=== PATIENT | male | born 1995 | race Caucasian/White ===

== ENCOUNTER 2021-07-27 06:58 | Emergency (ER) | payer BC ==
--- NOTE | 2021-07-27 09:10 | ER ---
Nurse's Notes [facility] Name: Leonardo Sumner Age: 26 yrs Sex: Male : 1995 Arrival Date: 07/27/2021 Time: 07:01 Bed DX1 Private MD: Diagnosis: Peritonsillar abscess Presentation: 07/27 07:27 Chief complaint: Sore throat and pain that extends down both sides of the neck x 2 hb weeks. Recently completed amoxicillin for same s/s. Coronavirus screen: At this time, the client does not indicate any symptoms associated with coronavirus-19. Onset of symptoms was July 12, 2021. 07:27 Method Of Arrival: Ambulatory hb 07:27 Acuity: SPENCRE 4 hb 08:41 Acuity: SPENCER 3 iw Historical: - Allergies: 07:29 No Known Allergies; hb - Family history:: not pertinent. Vital Signs: 07:27 BP 164 / 94; Pulse 92; Resp 16; Temp 98.3; Pulse Ox 100% on R/A; Weight 88.45 kg; hb Height 5 ft. 9 in. (175.26 cm); Pain 4/10; 07:27 Body Mass Index 28.80 (88.45 kg, 175.26 cm) hb ED Course: 07:01 Patient arrived in ED. wm 07:29 Triage completed. hb 07:29 Arm band placed on. hb 08:17 Jason Machuca MD is Attending Physician. jenn 08:41 Effie Dupont, RN is Primary Nurse. iw 09:09 Kena Garibay MD is Referral Physician. jenn 09:09 Gisela Mcneil MD is Referral Physician. jenn 09:20 CT Soft Tissue Neck W/contr In Process Unspecified. EDMS Administered Medications: 09:34 Drug: NS 0.9% 1000 ml Route: IV; Rate: 1 bolus; Site: right antecubital; iw 10:30 Follow up: IV Status: Completed infusion iw 09:34 Drug: Rocephin (cefTRIAXone) 1 grams Route: IV; Rate: per protocol; Site: right iw antecubital; 09:44 Follow up: IV Status: Completed infusion iw 09:34 Drug: Clindamycin 900 mg Route: IVPB; Infused Over: 30 mins; Site: right antecubital; iw 10:00 Follow up: IV Status: Completed infusion iw 09:34 Drug: Decadron - Dexamethasone 10 mg Route: IVP; Site: right antecubital; iw 10:00 Follow up: Response: No adverse reaction iw Outcome: Discharge ordered by . jenn 10:03 Patient left the ED. iw Signatures: Dispatcher [employer] EDJason Hunter MD MD cha Williams, Irene, RN RN iw Baxter, Heather, RN RN hb Marsh, Wendy
--- NOTE | 2021-07-27 09:10 | EDPHYS ---
Physician Documentation [facility] Name: Leonardo Sumner Age: 26 yrs Sex: Male : 1995 Arrival Date: 07/27/2021 Time: 07:01 Bed DX1 Private MD: ED Physician Jason Machuca HPI: 07/27 08:41 This 26 yrs old Male presents to ER via Ambulatory with complaints of Swollen jenn Glands. 08:41 The patient presents with pain, redness, swelling. The problem is located in the left jenn buccal mucosa. Onset: The symptoms/episode began/occurred 10 day(s) ago. Duration: The symptoms are continuous, and are steadily getting worse. Modifying factors: The symptoms are alleviated by nothing, the symptoms are aggravated by chewing. Associated signs and symptoms: The patient has no apparent associated signs or symptoms. Severity of symptoms: At their worst the symptoms were in the emergency department the symptoms are unchanged. The patient has not experienced similar symptoms in the past. Historical: - Allergies: 07:29 No Known Allergies; hb - Family history:: not pertinent. ROS: 08:41 Constitutional: Negative for fever, chills, and weight loss, Eyes: Negative for injury, jenn pain, redness, and discharge, Neck: Negative for injury, pain, and swelling, Cardiovascular: Negative for chest pain, palpitations, and edema, Respiratory: Negative for shortness of breath, cough, wheezing, and pleuritic chest pain, Abdomen/GI: Negative for abdominal pain, nausea, vomiting, diarrhea, and constipation, Back: Negative for injury and pain, : Negative for injury, bleeding, discharge, and swelling, MS/Extremity: Negative for injury and deformity, Skin: Negative for injury, rash, and discoloration, Neuro: Negative for headache, weakness, numbness, tingling, and seizure, Psych: Negative for depression, anxiety, suicide ideation, homicidal ideation, and hallucinations, Allergy/Immunology: Negative for hives, rash, and allergies, Endocrine: Negative for neck swelling, polydipsia, polyuria, polyphagia, and marked weight changes, Hematologic/Lymphatic: Negative for swollen nodes, abnormal bleeding, and unusual bruising. 08:41 ENT: Positive for difficulty swallowing, sore throat. Exam: 08:41 Constitutional: This is a well developed, well nourished patient who is awake, alert, jenn and in no acute distress. Head/Face: Normocephalic, atraumatic. Eyes: Pupils equal round and reactive to light, extra-ocular motions intact. Lids and lashes normal. Conjunctiva and sclera are non-icteric and not injected. Cornea within normal limits. Periorbital areas with no swelling, redness, or edema. Neck: Trachea midline, no thyromegaly or masses palpated, and no cervical lymphadenopathy. Supple, full range of motion without nuchal rigidity, or vertebral point tenderness. No Meningismus. Chest/axilla: Normal chest wall appearance and motion. Nontender with no deformity. No lesions are appreciated. Cardiovascular: Regular rate and rhythm with a normal S1 and S2. No gallops, murmurs, or rubs. Normal PMI, no JVD. No pulse deficits. Respiratory: Lungs have equal breath sounds bilaterally, clear to auscultation and percussion. No rales, rhonchi or wheezes noted. No increased work of breathing, no retractions or nasal flaring. Abdomen/GI: Soft, non-tender, with normal bowel sounds. No distension or tympany. No guarding or rebound. No evidence of tenderness throughout. Back: No spinal tenderness. No costovertebral tenderness. Full range of motion. Skin: Warm, dry with normal turgor. Normal color with no rashes, no lesions, and no evidence of cellulitis. MS/ Extremity: Pulses equal, no cyanosis. Neurovascular intact. Full, normal range of motion. Neuro: Awake and alert, GCS 15, oriented to person, place, time, and situation. Cranial nerves II-XII grossly intact. Motor strength 5/5 in all extremities. Sensory grossly intact. Cerebellar exam normal. Normal gait. Psych: Awake, alert, with orientation to person, place and time. Behavior, mood, and affect are within normal limits. 08:41 ENT: Posterior pharynx: Tonsils: bilaterally enlarged, with erythema, Uvula: normal, swelling, that is moderate, erythema, that is moderate, exudate, is not appreciated, peritonsillar mass, is not appreciated. Vital Signs: 07:27 BP 164 / 94; Pulse 92; Resp 16; Temp 98.3; Pulse Ox 100% on R/A; Weight 88.45 kg; hb Height 5 ft. 9 in. (175.26 cm); Pain 4/10; 07:27 Body Mass Index 28.80 (88.45 kg, 175.26 cm) hb MDM: 08:17 Patient medically screened. jenn 08:43 Differential diagnosis: dental caries, gingivitis, dental abscess. Data reviewed: vital jenn signs, nurses notes, lab test result(s), radiologic studies, CT scan. 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 Counseling: I had a detailed discussion with the patient and/or guardian regarding: the historical points, exam findings, and any diagnostic results supporting the discharge/admit diagnosis, lab results, radiology results, the need for outpatient follow up, for definitive care, an ENT specialist. 07/27 08:40 Order name: CBC with Diff [facility] 07/27 08:40 Order name: Comprehensive Metabolic Panel [facility] 07/27 08:40 Order name: CT Soft Tissue Neck W/contr; Complete Time: 09:47 jenn Administered Medications: 09:34 Drug: NS 0.9% 1000 ml Route: IV; Rate: 1 bolus; Site: right antecubital; iw 10:30 Follow up: IV Status: Completed infusion iw 09:34 Drug: Rocephin (cefTRIAXone) 1 grams Route: IV; Rate: per protocol; Site: right iw antecubital; 09:44 Follow up: IV Status: Completed infusion iw 09:34 Drug: Clindamycin 900 mg Route: IVPB; Infused Over: 30 mins; Site: right antecubital; iw 10:00 Follow up: IV Status: Completed infusion iw 09:34 Drug: Decadron - Dexamethasone 10 mg Route: IVP; Site: right antecubital; iw 10:00 Follow up: Response: No adverse reaction iw Disposition Summary: 07/27/21 09:09 Discharge Ordered Location: Home jenn Problem: new jenn Symptoms: have improved jenn Condition: Stable jenn Diagnosis - Peritonsillar abscess jenn Followup: jenn - With: Private Physician - When: 2 - 3 days - Reason: Recheck today's complaints, Continuance of care, Re-evaluation by your physician Followup: jenn - With: - When: Upon discharge from the Emergency Department - Reason: Recheck today's complaints, Re-evaluation by your physician Followup: jenn - With: - When: Upon discharge from the Emergency Department - Reason: Recheck today's complaints, Re-evaluation by your physician Discharge Instructions: - Discharge Summary Sheet jenn - Peritonsillar Abscess jenn - Pharyngitis jenn - Peritonsillar Abscess, [id number] jenn - Peritonsillar Cellulitis jenn Forms: - Medication Reconciliation Form jenn - Thank You Letter jenn - Antibiotic Education jenn - Prescription Opioid Use jenn - SBAR form iw Prescriptions: - Clindamycin HCl 300 mg Oral Capsule - take 1 capsule by ORAL route every 6 hours for 10 days; 40 capsule; Refills: 0, jenn Product Selection Permitted Signatures: Dispatcher [employer] EDJason Hunter MD MD cha Williams, Irene, RN RN iw Baxter, Heather, RN RN
[2021-07-27] MEDS ORDERED: CEFTRIAXONE/SWI 1gm 1 GM/10 ML SYR ONE (09:38)
[2021-07-27] MEDS ORDERED: CLINDAMYCIN 900MG/D5W 900 MG/50 ML IVPB IV ONE (09:38)
[2021-07-27] MEDS ORDERED: dexAMETHasone 10 MG/ML VIAL ONE (09:38)
[2021-07-27] MEDS ORDERED: NA CHLORIDE 0.9% 1,000 ML ONE (09:38)
--- NOTE | 2021-07-27 09:43 | RAD REPORT ---
EXAM DESCRIPTION: CT - Soft Tissue Neck W/Contr - 07/27/2021 9:20 am CLINICAL HISTORY: PAIN COMPARISON: No comparisons TECHNIQUE: During dynamic enhancement using 100 milliliters nonionic IV contrast, axial 5 millimeter thick images of the neck were obtained. All CT scans are performed using dose optimization technique as appropriate and may include automated exposure control or mA/KV adjustment according to patient size. FINDINGS: Intracranial portion the examination is unremarkable. No globe or orbital content abnormal ity. Mastoid air cells and paranasal sinuses are clear. No vascular abnormality identifiable. Patient has baseline prominence of the tonsillar tissue. Left tonsil is enlarged relative to the righ t and in the lateral mid and inferior aspect of the left tonsil there is a 2 cm CC x 1 cm AP x 0.8 CC TR low-density collection most likely a left tonsillar abscess. Left-side pharyngeal tissue at the superior margin of the tonsil is edematous but not clearly an absc ess. No soft palate abnormality seen. Epiglottis and vocal cords are unremarkable. A few small nonspecific right-side cervical lymph nodes are present. A cluster of numerous 1-2.5 cm s ized lymph nodes are present along the left side of the neck from angle of the mandible to the hyoid bone level. These are most likely reactive lymph nodes from the left tonsillar process. None of the c ervical lymph nodes show evidence for cavitation or abscess formation. The parotid, submandibular and thyroid gland tissue show no suspicious findings. IMPRESSION: A 2 x 1 x 1 cm left tonsillar abscess is present in the lateral mid to lower portion of the tonsil with overall enlargement of the left tonsil. The left-side supratonsillar pharyngeal mucosa is thickened and edematous without a clearly defined a bscess. Numerous enhancing reactive lymph nodes left side of the neck.
[2021-07-27 09:45] LABS: Absolute Lymphocytes (CBC) 1.4 K/uL (0.7-4.9); Basophils % 0.3 % (0-1.3); Lymphocytes % 12.7 % (15.3-44.8); MPV 7.4 fL (7.6-11.3); RBC Red Blood Cell Count 4.97 M/uL (4.33-5.43)
[2021-07-27 09:58] LABS: ALT/SGPT 42 U/L (12-78); AST/SGOT 18 U/L (15-37); Albumin 4.2 g/dL (3.4-5.0); Alkaline Phosphatase 80 U/L (45-117); BUN Blood Urea Nitrogen 9 mg/dL (7-18); Bicarbonate 33 mmol/L (21-32); Bilirubin Total 0.9 mg/dL (0.2-1.0); Glucose Level 90 mg/dL (74-106); Potassium 4.2 mmol/L (3.5-5.1); Protein, Total 8.8 g/dL (6.4-8.2); Sodium Level 137 mmol/L (136-145)
[2021-07-27 10:52] VITALS: BP 164/94; TEMP 98.3; O2SAT 100
== END 2021-07-27 10:03 | disposition home or self-care (01) ==
LOC: ER 06:58
DX: J36 Peritonsillar abscess (principal)
CPT/HCPCS: 96365; 85025; 36415; 80053; 70491; 96375; 99283; Q9967; J1100; J0696; J7030

== ENCOUNTER → 2024-02-14 | Emergency (ER) | payer BC ==
[~2024-02-14] MED LIST: FLUORESCEIN SODIUM 1 MG/WRAP ONE; KETOROLAC 30 MG/ML INJ ONE; NA CHLORIDE 0.9% 1,000 ML ONE; TETRACAINE HCL 0.5% 4ML OPTH ONE
--- OUTSIDE RECORDS SUMMARY | 2024-02-14 19:32 | XMS REPORT | Continuity of Care Document ---
Author Name Unknown Address [address] [place] [address] [facility] thconnect Address [address] [place] [address] Care Team Providers Care Utilization Manager Name Role Phone Scarlet Terry Attending Clinician Unavailable Payers Payer Name Policy Type Policy Number Effective Date Expirati on Date Source [place] [address] [id number] [facility] Problems Condition Name Condition Details Condition Category Status Onset Date Resolution Date Last Treatment Date Treating Clinician Comments Source [id number] Sprain of right acromiocla vicular ligament, initial encounter Problem [facility] [id number] Pain, joint, shoulder, right Problem [facility] Shoulder joint pain Shoulder pain, right Problem [facility] [id number] Umbilical pain Problem [facility] [id number] Ganglion cyst Problem [facility] Social History Social Habit Start Date Stop Date Quantity Comments Source History of Tobacco Use [facility] Sex Assigned At [facility] Smoking Status Start Date Stop Date Source Never Smoker [facility] Medications Ordered Medication Name Filled Medication Name Start Date Stop Date Current Medication? Ordering Clinician Indication Dosage Frequency Signature (SIG) Comments Components Source No Known Medications No Known Medications No [facility] No Known Medications No Known Medications No [facility] Vital Signs Vital Name Observation Time Observation Value Comments S nahun height 2023-10-24 14:40:00 70 [in_i] Commo n [facility] weight 2023-10-24 14:40:00 161.0 [lb_av] Co [facility] temperature 2023-10-24 14:40:00 98.2 [degF] Com [facility] bmi 2023-10-24 14:40:00 23.1 kg/m2 Commo n [facility] oximetry 2023-10-24 14:40:00 100 % Commo n [facility] respiratory rate 2023-10-24 14:40:00 16 /min [facility] blood pressure systolic 2023-10-24 14:40:00 133 mm[Hg] Common [facility] blood pressure diastolic 2023-10-24 14:40:00 83 mm[Hg] [facility] height 2023-09-21 14:20:00 70 [in_i] Commo n [facility] weight 2023-09-21 14:20:00 166.4 [lb_av] Co [facility] temperature 2023-09-21 14:20:00 98.2 [degF] Com [facility] bmi 2023-09-21 14:20:00 23.87 kg/m2 Comm on [facility] oximetry 2023-09-21 14:20:00 100 % Commo n [facility] respiratory rate 2023-09-21 14:20:00 16 /min Common [facility] blood pressure systolic 2023-09-21 14:20:00 138 mm[Hg] [facility] blood pressure diastolic 2023-09-21 14:20:00 73 mm[Hg] [facility] Encounters Start Date/Time End Date/Time Encounter Type Admission Type Attending Clinicians Care Facility Care Department Encounter ID Source 2023-10-21 09:18:00 Outpatient Scarlet Terry [facility] [id number] [facility] 2023-10-17 10:35:00 Outpatient Scarlet Terry [facility] [id number] [facility] 2023-09-21 14:16:00 Outpatient Scarlet Terry [facility] [id number] [facility] 2023-03-10 09:27:01 Outpatient Scarlet Terry [facility] [id number] [facility] 2023-03-09 15:19:01 Outpatient Scarlet Terry [facility] [id number] [facility] 2022-10-22 13:00:00 Outpatient Scarlet Terry [facility] [id number] [facility] 2022-10-20 13:46:01 Outpatient Scarlet Terry [facility] [id number] [facility] 2021-12-23 13:58:19 Outpatient Scarlet Terry [facility] [id number] [facility] 2023-11-28 00:00:00 2023-11-28 00:00:00 (TEL) [facility] [id number] [facility] 2023-10-24 00:00:00 2023-10-24 00:00:00 PREV VISIT NEW AGE 18-39 [facility] [id number] [facility] 2023-09-28 00:00:00 2023-09-28 00:00:00 (TEL) [facility] [id number] [facility] 2023-09-21 00:00:00 2023-09-21 00:00:00 OFFICE VISIT ESTAB PT LEVEL 3 [facility] [id number] [facility] Results Test Description Test Time Test Comments Results Result Co mments Source CBC (INCLUDES DIFF/PLT)2023-11-17 00:00:00* Test Item Value Reference Range Interpretation Comme nts ABSOLUTE BASOPHILS (test code = 704-7) 30 cells/uL See_Comment N [Automated m essage] The system which generated this result transmitted reference range: 0-200 cells/uL. The reference range was not used to interpret this result as normal/abnormal. ABSOLUTE EOSINOPHILS (test code = 711-2) 142 cells/uL See_Comment N [Automated m essage] The system which generated this result transmitted reference range: 15-500 cells/uL. The reference range was not used to interpret this result as normal/abnormal. ABSOLUTE LYMPHOCYTES (test code = 731-0) 1699 cells/uL See_Comment N [Automated m essage] The system which generated this result transmitted reference range: 850-3900 cells/uL. The reference range was not used to interpret this result as normal/abnormal. ABSOLUTE MONOCYTES (test code = 742-7) 314 cells/uL See_Comment N [Automated m essage] The system which generated this result transmitted reference range: 200-950 cells/uL. The reference range was not used to interpret this result as normal/abnormal. ABSOLUTE NEUTROPHILS (test code = 751-8) 2116 cells/uL See_Comment N [Automated m essage] The system which generated this result transmitted reference range: 3796-0445 cells/uL. The reference range was not used to interpret this result as normal/abnormal. BASOPHILS (test code = 706-2) 0.7 % N EOSINOPHILS (test code = 713-8) 3.3 % N HEMATOCRIT (test code = 4544-3) 42.5 % See_Comment N [Automated messa ge] The system which generated this result transmitted reference range: 38.5-50.0 %. The reference range was not used to interpret this result as normal/abnormal. HEMOGLOBIN (test code = 718-7) 14.2 g/dL See_Comment N [Automated messa ge] The system which generated this result transmitted reference range: 13.2-17.1 g/dL. The reference range was not used to interpret this result as normal/abnormal. LYMPHOCYTES (test code = 736-9) 39.5 % N MCH (test code = 785-6) 29.6 pg See_Comment N [Automated messa ge] The system which generated this result transmitted reference range: 27.0-33.0 pg. The reference range was not used to interpret this result as normal/abnormal. MCHC (test code = 786-4) 33.4 g/dL See_Comment N [Automated messa ge] The system which generated this result transmitted reference range: 32.0-36.0 g/dL. The reference range was not used to interpret this result as normal/abnormal. MCV (test code = 787-2) 88.7 fL See_Comment N [Automated messa ge] The system which generated this result transmitted reference range: 80.0-100.0 fL. The reference range was not used to interpret this result as normal/abnormal. MONOCYTES (test code = 5905-5) 7.3 % N MPV (test code = 776-5) 9.5 fL See_Comment N [Automated messa ge] The system which generated this result transmitted reference range: 7.5-12.5 fL. The reference range was not used to interpret this result as normal/abnormal. NEUTROPHILS (test code = 770-8) 49.2 % N PLATELET COUNT (test code = 777-3) 260 Thousand/uL See_Comment N [Automated message] The system which generated this result transmitted reference range: 140-400 Thousand/uL. The reference range was not used to interpret this result as normal/abnormal. RDW (test code = 788-0) 12.1 % See_Comment N [Automated messa ge] The system which generated this result transmitted reference range: 11.0-15.0 %. The reference range was not used to interpret this result as normal/abnormal. RED BLOOD CELL COUNT (test code = 789-8) 4.79 Million/uL See_Comment N [Automated message] The system which generated this result transmitted reference range: 4.20-5.80 Million/uL. The reference range was not used to interpret this result as normal/abnormal. WHITE BLOOD CELL COUNT (test code = 6690-2) 4.3 Thousand/uL See_Comment N [Automated message] The system which generated this result transmitted reference range: 3.8-10.8 Thousand/uL. The reference range was not used to interpret this result as normal/abnormal. LIPID [id number] 00:00:00* Test Item Value Reference Range Interpretation Comme nts CHOL/HDLC RATIO (test code = 9830-1) 3.2 (calc) See_Comment N [Automated [place] ge] The system which generated this result transmitted reference range: <5.0 (calc). The reference range was not used to interpret this result as normal/abnormal. CHOLESTEROL, TOTAL (test code = 2093-3) 212 mg/dL See_Comment H [Automated message] The system which generated this result transmitted reference range: <200 mg/dL. The reference range was not used to interpret this result as normal/abnormal. HDL CHOLESTEROL (test code = 2085-9) 66 mg/dL See_Comment N [Automated messa ge] The system which generated this result transmitted reference range: > OR = 40 mg/dL. The reference range was not used to interpret this result as normal/abnormal. LDL-CHOLESTEROL (test code = 18146-4) 131 mg/dL (calc) H NON HDL CHOLESTEROL (test code = 50355-5) 146 mg/dL (calc) See_Comment H [Automated message] The system which generated this result transmitted reference range: <130 mg/dL (calc). The reference range was not used to interpret this result as normal/abnormal. TRIGLYCERIDES (test code = 2571-8) 54 mg/dL See_Comment N [Automated [place] ge] The system which generated this result transmitted reference range: <150 mg/dL. The reference range was not used to interpret this result as normal/abnormal. ABO GROUP AND RH [id number] 00:00:00* Test Item Value Reference Range Interpretation Comme nts ABO GROUP (test code = 883-9) A RH TYPE (test code = 75346-0) RH(D) POSITIVE
--- NOTE | 2024-02-14 21:20 | ER ---
Nurse's Notes [facility] Name: Leonardo Sumner Age: 28 yrs Sex: Male : 1995 Arrival Date: 02/14/2024 Time: 19:29 Bed 11 Private MD: Diagnosis: Other conjunctivitis;Acute chemical conjunctivitis left eye Presentation: 02/13 19:49 Chief complaint: Patient states: Pt states he was splashed in left eye and left side of tl4 face with methyl ethyl ketone peroxide at 1850. Pt flushed eye with water for a total of approx 18 minutes with some relief of burning. Pt states he sees a halo around objects. Pt c/o redness and burning in the left eye and superficial childress to the skin around his eye. Coronavirus screen: At this time, the client does not indicate any symptoms associated with coronavirus-19. Ebola Screen: No symptoms or risks identified at this time. Initial Sepsis Screen: Does the patient meet any 2 criteria? No. Patient's initial sepsis screen is negative. Does the patient have a suspected source of infection? No. Patient's initial sepsis screen is negative. Risk Assessment: Do you want to hurt yourself or someone else? Patient reports no desire to harm self or others. Onset of symptoms was February 14, 2024 at 18:50. 19:49 Method Of Arrival: Ambulatory tl4 19:49 Acuity: SPENCER 3 tl4 Triage Assessment: 19:55 General: Appears uncomfortable, Behavior is calm, cooperative. Pain: Complains of pain tl4 in left eye. EENT: Eyes redness. Neuro: Level of Consciousness is awake, alert, obeys commands, Oriented to person, place, time, situation. Cardiovascular: Capillary refill < 3 seconds Patient's skin is warm and dry. Respiratory: Breath sounds are clear bilaterally. Denies cough, shortness of breath. GI: No deficits noted. No signs and/or symptoms were reported involving the gastrointestinal system. : No deficits noted. No signs and/or symptoms were reported regarding the genitourinary system. Derm: No deficits noted. No signs and/or symptoms reported regarding the dermatologic system. Musculoskeletal: No deficits noted. No signs and/or symptoms reported regarding the musculoskeletal system. Historical: - Allergies: 19:54 No Known Allergies; tl4 - Home Meds: 19:54 None [Active]; tl4 - PMHx: 19:54 None; tl4 - PSHx: 19:54 None; tl4 - Immunization history:: Adult Immunizations unknown. - Social history:: Smoking status: Patient denies any tobacco usage or history of. - Family history:: not pertinent. Screenin:56 [facility] ED Fall Risk Assessment (Adult) History of falling in the last 3 months, tl4 including since admission No falls in past 3 months (0 pts) Confusion or Disorientation No (0 pts) Intoxicated or Sedated No (0 pts) Impaired Gait No (0 pts) Mobility Assist Device Used No (0 pt) Altered Elimination No (0 pt) Score/Fall Risk Level 0 - 2 = Low Risk Oriented to surroundings, Maintained a safe environment, Educated pt \T\ family on fall prevention, incl call for assistance when getting out of bed, Assessed \T\ reinforced patient's understanding of fall precautions, Hourly rounding (assess needs \T\ fall precautionary measures) done, Used ambulatory aids as needed (educated on \T\ assisted with), Used gait belt as appropriate. Abuse screen: Denies threats or abuse. Denies injuries from another. Nutritional screening: No deficits noted. Tuberculosis screening: No symptoms or risk factors identified. Assessment: 20:05 Reassessment: No changes from previously documented assessment. Patient and/or family nj1 updated on plan of care and expected duration. Pain level reassessed. Patient is alert, oriented x 3, equal unlabored respirations, skin warm/dry/pink. 21:23 Reassessment: No changes from previously documented assessment. Patient and/or family nj1 updated on plan of care and expected duration. Pain level reassessed. Patient is alert, oriented x 3, equal unlabored respirations, skin warm/dry/pink. Vital Signs: 19:49 BP 139 / 96; Pulse 68; Resp 18; Temp 98.3(O); Pulse Ox 100% ; Weight 72.57 kg; Height 5 tl4 ft. 9 in. ; Pain 8/10; 21:31 BP 144 / 99; Pulse 70; Resp 17; Pulse Ox 100% ; ap3 19:49 Body Mass Index 23.63 (72.57 kg, 175.26 cm) tl4 19:49 Pain Scale: Adult tl4 Visual Acuity: 19:50 Left Eye Visual acuity 20/25, Normal; Right Eye Visual acuity 20/20, Normal; Both Eyes nj1 Visual acuity 20/20; Without Lenses; ED Course: 19:32 Patient arrived in ED. ra3 19:39 Carlos Unger, [place] is Primary Nurse. tl4 19:54 Triage completed. tl4 19:56 Arm band placed on right wrist. tl4 20:05 Carter Taylor MD is Attending Physician. sp4 21:17 Alin Steele MD is Referral Physician. sp4 21:24 Kalee lens placement and left eye irrigation. Patient did not have IV access during nj1 this emergency room visit. 21:32 Provided Education on: discharge instructions. ap3 21:32 Patient has correct armband on for positive identification. Bed in low position. Call ap3 light in reach. Side rails up X2. Adult w/ patient. Administered Medications: 20:18 Drug: NS 0.9% IV 1000 ml IV at 1 bolus Per protocol; 1000 mL bolus {Note: Via [facility] lens.} Route: IV; Rate: 1 bolus; Site: Other; 21:21 Follow up: Response: No adverse reaction; IV Status: Completed infusion; IV Intake: nj1 1000ml 20:18 Drug: Tetracaine Ophthalmic Drops 0.5 % 1 drops Ophthalmic once {Note: Administered by [facility] Dr Taylor.} Route: Ophthalmic; Site: left eye; 21:20 Follow up: Response: No adverse reaction nj1 21:20 Drug: Tetracaine Ophthalmic Drops 0.5 % 1 drops Ophthalmic once {Note: Administered by [facility] Dr Taylor.} Route: Ophthalmic; Site: left eye; 21:21 Follow up: Response: No adverse reaction nj1 21:20 CANCELLED (no IV access): [id number] mg IVP once nj1 21:20 Drug: Ketorolac IM 30 mg IM once Route: IM; Site: right ventrogluteal; nj1 21:23 Follow up: Response: No adverse reaction; Pain is decreased nj1 21:22 Drug: NS 0.9% IV 1000 ml IV at 1 bolus Per protocol; 1000 mL bolus {Note: Administered nj1 via kalee lens to left eye.} Route: IV; Rate: 1 bolus; Site: Other; 21:23 Follow up: Response: No adverse reaction; IV Status: Completed infusion; IV Intake: nj1 1000ml 21:22 Drug: NS 0.9% IV 1000 ml IV at 1 bolus Per protocol; 1000 mL bolus {Note: Administered nj1 via kalee lens in left eye.} Route: IV; Rate: 1 bolus; Site: Other; 21:22 Follow up: Response: No adverse reaction; IV Status: Completed infusion; IV Intake: nj1 1000ml Medication: 21:32 VIS not applicable for this client. ap3 Intake: 21:21 IV: 1000ml; Total: 1000ml. nj1 21:22 IV: 1000ml; Total: 2000ml. nj1 21:23 IV: 1000ml; Total: 3000ml. nj1 Outcome: 21:19 Discharge ordered by . sp4 21:31 Discharged to home ambulatory, with family, ap3 21:31 Condition: good 21:31 Discharge instructions given to patient, Instructed on discharge instructions, follow up and referral plans. medication usage, Demonstrated understanding of instructions, follow-up care, medications, Prescriptions given X 2, 21:32 Patient left the ED. ap3 Signatures: Mary Sibley, RN RN ap3 Carter Taylor MD MD sp4 Chantel Novak RN RN nj1 Carlos Unger RN RN tl4 Jennifer Charles 3
--- NOTE | 2024-02-14 21:20 | EDPHYS ---
Physician Documentation [facility] Name: Leonardo Sumner Age: 28 yrs Sex: Male : 1995 Arrival Date: 02/14/2024 Time: 19:29 Bed 11 Private MD: ED Physician Carter Taylor HPI: 02/13 20:05 This 28 yrs old Other Male presents to ER via Ambulatory with complaints of Chemical sp4 Exposure In Eye. 20:22 Methyl ethyl ketone peroxide (MEKP) is an organic peroxide splash to the left eye at sp4 the home while working in the garage . . 20:23 Patient states he splashed chemical into the left at 1850 and then irrigated heavily sp4 for 18 minutes with tap water. Patient called poison control who advised irrigation for at least 30 minutes. Patient states that there is redness pain tenderness but no vision loss. Patient has significant left eye redness on presentation. The right eye is intact. . Historical: - Allergies: 19:54 No Known Allergies; tl4 - Home Meds: 19:54 None [Active]; tl4 - PMHx: 19:54 None; tl4 - PSHx: 19:54 None; tl4 - Immunization history:: Adult Immunizations unknown. - Social history:: Smoking status: Patient denies any tobacco usage or history of. - Family history:: not pertinent. ROS: 20:23 Constitutional: Negative for fever, chills, and weight loss, Eyes: Positive left eye sp4 pain redness irritation and tearing 20:23 All other systems are negative, Exam: 20:23 Visual Acuity: Visual acuity is within normal limits. sp4 20:23 Constitutional: This is a well developed, well nourished patient who is awake, alert, and in no acute distress. Head/Face: Normocephalic, atraumatic. Eyes: Pupils equal round and reactive to light, extra-ocular motions intact. Right eye exam is normal. Left eye exam reveals conjunctival redness irritation, tearing, normal reactive pupil, no signs of corneal conjunctival abrasion. Signs of chemical conjunctivitis. ENT: Nares patent. No nasal discharge, no septal abnormalities noted. Tympanic membranes are normal and external auditory canals are clear. Oropharynx with no redness, swelling, or masses, exudates, or evidence of obstruction, uvula midline. Mucous membranes moist. Neck: Trachea midline, no thyromegaly or masses palpated, and no cervical lymphadenopathy. Supple, full range of motion without nuchal rigidity, or vertebral point tenderness. Chest/axilla: Normal chest wall appearance and motion. Nontender with no deformity. No lesions are appreciated. Cardiovascular: Regular rate and rhythm with a normal S1 and S2. No gallops, murmurs, or rubs. Normal PMI, no JVD. No pulse deficits. Respiratory: Lungs have equal breath sounds bilaterally, clear to auscultation and percussion. No rales, rhonchi or wheezes noted. No increased work of breathing, no retractions or nasal flaring. Abdomen/GI: Soft, with normal bowel sounds. No distension or tympany. No guarding or rebound. No evidence of tenderness throughout. Back: No spinal tenderness. No costovertebral tenderness. Male : Normal genitalia with no discharge or lesions. Skin: Warm, dry with normal turgor. Normal color with no rashes, no lesions, and no evidence of cellulitis. MS/ Extremity: Pulses equal, no cyanosis. Neurovascular intact. Full, normal range of motion. Neuro: Awake and alert, GCS 15, oriented to person, place, time, and situation. Cranial nerves II-XII grossly intact. Motor strength 5/5 in all extremities. Sensory grossly intact. Psych: Awake, alert, with orientation to person, place and time. Behavior, mood, and affect are within normal limits Vital Signs: 19:49 BP 139 / 96; Pulse 68; Resp 18; Temp 98.3(O); Pulse Ox 100% ; Weight 72.57 kg; Height 5 tl4 ft. 9 in. ; Pain 8/10; 21:31 BP 144 / 99; Pulse 70; Resp 17; Pulse Ox 100% ; ap3 19:49 Body Mass Index 23.63 (72.57 kg, 175.26 cm) tl4 19:49 Pain Scale: Adult tl4 Visual Acuity: 19:50 Left Eye Visual acuity 20/25, Normal; Right Eye Visual acuity 20/20, Normal; Both Eyes nj1 Visual acuity 20/20; Without Lenses; MDM: 20:18 Patient medically screened. sp4 20:27 ED course: Poison control recommendation is to irrigate the eye and then stain the eye sp4 checking for corneal conjunctival abrasions. Irrigation for at least 30 minutes.. 21:15 Differential diagnosis: Corneal abrasion of Corneal ulcer of Foreign body in Acute sp4 iritis of Ultraviolet keratitis in. Data reviewed: vital signs, nurses notes. ED course: Patient's eye was irrigated with 3 bags of Saline via Kalee lens. Patient feels better. Fluorescein eye exam reveals no corneal abrasions or ulcers. Patient will be prescribed tobramycin eyedrops to prevent eye infection every 4 hours onto the left eye for 5 days. Will advise ibuprofen and Tylenol as needed for pain. Will refer to concession worker for visit in the office for repeat exam tomorrow. . 02/13 20:10 Order name: Eye Tray; Complete Time: 20:18 sp4 02/13 20:10 Order name: Fluoresene Opth strip; Complete Time: 21:24 sp4 02/13 20:10 Order name: Visual Acuity; Complete Time: 20:18 sp4 Administered Medications: 20:18 Drug: NS 0.9% IV 1000 ml IV at 1 bolus Per protocol; 1000 mL bolus {Note: Via kalee tl4 lens.} Route: IV; Rate: 1 bolus; Site: Other; 21:21 Follow up: Response: No adverse reaction; IV Status: Completed infusion; IV Intake: nj1 1000ml 20:18 Drug: Tetracaine Ophthalmic Drops 0.5 % 1 drops Ophthalmic once {Note: Administered by 4 Dr Taylor.} Route: Ophthalmic; Site: left eye; 21:20 Follow up: Response: No adverse reaction nj1 21:20 Drug: Tetracaine Ophthalmic Drops 0.5 % 1 drops Ophthalmic once {Note: Administered by [facility] [place] Dr Taylor.} Route: Ophthalmic; Site: left eye; 21:21 Follow up: Response: No adverse reaction nj1 21:20 CANCELLED (no IV access): [id number] mg IVP once nj1 21:20 Drug: Ketorolac IM 30 mg IM once Route: IM; Site: right ventrogluteal; nj1 21:23 Follow up: Response: No adverse reaction; Pain is decreased nj1 21:22 Drug: NS 0.9% IV 1000 ml IV at 1 bolus Per protocol; 1000 mL bolus {Note: Administered nj1 via kalee lens to left eye.} Route: IV; Rate: 1 bolus; Site: Other; 21:23 Follow up: Response: No adverse reaction; IV Status: Completed infusion; IV Intake: nj1 1000ml 21:22 Drug: NS 0.9% IV 1000 ml IV at 1 bolus Per protocol; 1000 mL bolus {Note: Administered nj1 via kalee lens in left eye.} Route: IV; Rate: 1 bolus; Site: Other; 21:22 Follow up: Response: No adverse reaction; IV Status: Completed infusion; IV Intake: nj1 1000ml Disposition Summary: 02/14/24 21:19 Discharge Ordered Problem: new sp4 Symptoms: have improved sp4 Condition: Stable sp4 Diagnosis - Other conjunctivitis sp4 - Acute chemical conjunctivitis left eye sp4 Followup: sp4 - With: Alin Steele MD - When: 24 Hours - Reason: Recheck today's complaints Discharge Instructions: - Discharge Summary Sheet sp4 - Chemical Conjunctivitis, Adult, [id number] sp4 Forms: - Patient Portal Instructions sp4 Prescriptions: - tobramycin 0.3 % Ophthalmic drops - instill 2 drop OPHTHALMIC route every 4 hours for 5 days; 5 milliliter; sp4 Refills: 0, Product Selection Permitted - Ibuprofen 800 mg Oral tablet - take 1 tablet ORAL route every 6 hours As needed PRN pain; 30 tablet; Refills: sp4 0, Product Selection Permitted Signatures: Carter Taylor MD MD sp4 Chantel Novak RN RN nj1 Carlos Unger RN RN tl4 Corrections: (The following items were deleted from the chart) 21:20 21:01 Ketorolac IVP 30 mg IVP once ordered. sp4 nj1
[2024-02-14 22:12] VITALS: BP 144/99; TEMP 98.3; O2SAT 100
== END ==
LOC: ER 19:29
DX: H10.212 Acute toxic conjunctivitis, left eye (principal); H10.89 Other conjunctivitis
CPT/HCPCS: J7030 ×2